=== PATIENT | female | born 1970 | race Two or more races ===

== ENCOUNTER 2017-12-03 07:47 | Outpatient (CLI) | payer OTHER | END 2017-12-03 08:19 | disposition home or self-care (01) | LOC: LAB 07:47 | DX: R00.2 Palpitations (principal); E03.8 Other specified hypothyroidism; E78.4 Other hyperlipidemia; M25.50 Pain in unspecified joint ==

== ENCOUNTER 2017-12-22 14:16 | Outpatient (CLI) | payer OTHER | END 2017-12-22 14:30 | disposition home or self-care (01) | LOC: MAMO-SONO 14:16 | DX: Z12.31 Encounter for screening mammogram for malignant neoplasm of breast (principal) ==

== ENCOUNTER 2018-07-29 07:59 | Outpatient (CLI) | payer OTHER | END 2018-07-29 12:51 | disposition home or self-care (01) | LOC: LAB 07:59 | DX: E03.8 Other specified hypothyroidism (principal); Z13.1 Encounter for screening for diabetes mellitus; Z12.11 Encounter for screening for malignant neoplasm of colon ==

== ENCOUNTER → 2019-03-13 09:00 | Outpatient (CLI) | payer OTHER | END | disposition home or self-care (01) | LOC: LAB 09:00 | DX: E03.8 Other specified hypothyroidism (principal); Z00.00 Encounter for general adult medical examination without abnormal findings; R42 Dizziness and giddiness; E78.49 Other hyperlipidemia; M26.629 Arthralgia of temporomandibular joint, unspecified side ==

== ENCOUNTER → 2019-03-15 10:39 | Outpatient (CLI) | payer OTHER | END | disposition home or self-care (01) | LOC: LAB 10:39 | DX: E03.8 Other specified hypothyroidism (principal); E78.49 Other hyperlipidemia; R42 Dizziness and giddiness; Z00.00 Encounter for general adult medical examination without abnormal findings; M26.629 Arthralgia of temporomandibular joint, unspecified side ==

== ENCOUNTER 2020-08-07 07:20 | Emergency (ER) | payer OTHER ==
[~2020-08-07] VITALS: Ht 147.3 cm; Wt 65.8 kg
[2020-08-07] MEDS ORDERED: SYNTHROID88 MCG (07:39)
== END 2020-08-07 21:20 | disposition home or self-care (01) ==
LOC: ER 07:20
DX: D27.1 Benign neoplasm of left ovary (principal); R10.32 Left lower quadrant pain

== ENCOUNTER 2020-09-08 05:55 | Day surgery (SDC) | payer OTHER ==
[~2020-09-08 05:55] MED LIST: SYNTHROID88 MCG
== END 2020-09-08 15:20 | disposition home or self-care (01) ==
LOC: CIR.AMB 05:55
PROVIDERS: ATTEND Obstetrics & Gynecology
DX: N84.0 Polyp of corpus uteri (principal); Z20.828 Contact with and (suspected) exposure to other viral communicable diseases

== ENCOUNTER 2021-08-17 08:05 | Outpatient (CLI) | payer OTHER | END 2021-08-17 08:11 | disposition home or self-care (01) | LOC: PPH VACUNA 08:05 | PROVIDERS: ATTEND Emergency Medicine Pediatric Emergency Medicine | DX: Z23 Encounter for immunization (principal) ==

== ENCOUNTER 2022-01-13 07:06 | Outpatient (CLI) | payer OTHER | END 2022-01-13 07:07 | disposition home or self-care (01) | LOC: LAB 07:06 | PROVIDERS: ATTEND Internal Medicine | DX: E03.8 Other specified hypothyroidism (principal); E55.9 Vitamin D deficiency, unspecified ==

== ENCOUNTER 2022-02-03 07:06 | Outpatient (CLI) | payer OTHER | END 2022-02-03 07:07 | disposition home or self-care (01) | LOC: LAB 07:06 | PROVIDERS: ATTEND General Practice | DX: E03.9 Hypothyroidism, unspecified (principal); E78.5 Hyperlipidemia, unspecified; E55.9 Vitamin D deficiency, unspecified; N39.0 Urinary tract infection, site not specified; R42 Dizziness and giddiness; R10.2 Pelvic and perineal pain; M19.90 Unspecified osteoarthritis, unspecified site; M25.50 Pain in unspecified joint ==

== ENCOUNTER 2022-02-15 09:41 | Outpatient (CLI) | payer OTHER | END 2022-02-15 09:46 | disposition home or self-care (01) | LOC: LAB 09:41 | PROVIDERS: ATTEND Emergency Medicine Pediatric Emergency Medicine | DX: Z20.828 Contact with and (suspected) exposure to other viral communicable diseases (principal) ==

== ENCOUNTER → 2022-06-16 | Outpatient (CLI) | payer OTHER | END | disposition home or self-care (01) | LOC: LAB 07:23 | PROVIDERS: ATTEND Internal Medicine | DX: E78.5 Hyperlipidemia, unspecified (principal); E11.65 Type 2 diabetes mellitus with hyperglycemia; E03.8 Other specified hypothyroidism; I10 Essential (primary) hypertension ==

== ENCOUNTER 2022-07-07 08:00 | Outpatient (CLI) | payer OTHER | END 2022-07-07 08:05 | disposition home or self-care (01) | LOC: PPH VACUNA 08:00 | PROVIDERS: ATTEND Emergency Medicine Pediatric Emergency Medicine | DX: Z23 Encounter for immunization (principal) ==

== ENCOUNTER → 2022-08-05 10:59 | Outpatient (CLI) | payer OTHER | END | disposition home or self-care (01) | LOC: LAB 10:59 | PROVIDERS: ATTEND General Practice | DX: M25.512 Pain in left shoulder (principal); M25.511 Pain in right shoulder ==

== ENCOUNTER → 2022-11-01 | Outpatient (CLI) | payer OTHER | END | disposition home or self-care (01) | LOC: LAB 06:59 | PROVIDERS: ATTEND Internal Medicine | DX: E55.9 Vitamin D deficiency, unspecified (principal); E03.8 Other specified hypothyroidism; I10 Essential (primary) hypertension; M81.0 Age-related osteoporosis without current pathological fracture; M06.09 Rheumatoid arthritis without rheumatoid factor, multiple sites; M46.1 Sacroiliitis, not elsewhere classified; E78.5 Hyperlipidemia, unspecified ==

== ENCOUNTER 2022-11-24 13:17 | Outpatient (CLI) | payer OTHER | END 2022-11-24 13:18 | disposition home or self-care (01) | LOC: LAB 13:17 | PROVIDERS: ATTEND General Practice | DX: R05.9 Cough, unspecified (principal); R06.02 Shortness of breath; R50.9 Fever, unspecified; Z20.822 Contact with and (suspected) exposure to COVID-19 ==

== ENCOUNTER 2023-01-25 07:58 | Outpatient (CLI) | payer OTHER | END 2023-01-25 09:08 | disposition home or self-care (01) | LOC: LAB 07:58 | PROVIDERS: ATTEND Internal Medicine | DX: E11.65 Type 2 diabetes mellitus with hyperglycemia (principal); E78.5 Hyperlipidemia, unspecified; E03.8 Other specified hypothyroidism; I10 Essential (primary) hypertension ==

== ENCOUNTER → 2023-02-08 | Outpatient (CLI) | payer OTHER | END | disposition home or self-care (01) | LOC: MRI 07:06 | PROVIDERS: ATTEND Internal Medicine Rheumatology | DX: M46.1 Sacroiliitis, not elsewhere classified (principal); M54.59 Other low back pain | CPT/HCPCS: 72196 ==

== ENCOUNTER 2023-02-24 12:57 | Outpatient (CLI) | payer OTHER | END 2023-02-24 13:07 | disposition home or self-care (01) | LOC: MAMO-SONO 12:57 | PROVIDERS: ATTEND General Practice | DX: N64.4 Mastodynia (principal) ==

== ENCOUNTER 2023-03-26 10:13 | Outpatient (CLI) | payer OTHER | END 2023-03-26 10:30 | disposition home or self-care (01) | LOC: RAD 10:13 | PROVIDERS: ATTEND Internal Medicine | DX: M54.40 Lumbago with sciatica, unspecified side (principal) ==

== ENCOUNTER 2023-06-23 | Outpatient (CLI) | payer OTHER | END 2023-06-23 00:15 | disposition home or self-care (01) | LOC: PPH VACUNA | PROVIDERS: ATTEND Emergency Medicine Pediatric Emergency Medicine | DX: Z23 Encounter for immunization (principal) | CPT/HCPCS: 90686; G0008 ==

== ENCOUNTER 2023-08-11 13:03 | Outpatient (CLI) | payer OTHER ==
[2023-08-11 08:25] LABS: HEMATOCRIT 34.6 % (36.0-45.00); HEMOGLOBIN 12.1 g/dL (12.0-15.00); MEAN CORPUSCULAR HEMOGLOBIN 31.2 pg (27.00-32.0); MEAN CORPUSCULAR HGB CONC 35.1 g/dl (32.0-36.0); PLATELET COUNT 285 K/uL (150-450); RED BLOOD COUNT 3.88 M/uL (4.00-6.00); RED CELL DISTRIBUTION WIDTH 13.2 % (11.5-14.5)
[2023-08-11 08:28] LABS: PH,URINE 5.5 (5.0-8.0); URINE APPEARANCE Clear; URINE BILIRRUBIN Negative (NEGATIVE); URINE BLOOD Negative; URINE COLOR Yellow; URINE GLUCOSE Negative (NEGATIVE); URINE LEUKOCYTE Negative; URINE NITRATE Negative; URINE PROTEIN Negative (NEGATIVE); URINE UROBILINOGEN 0.2 E.U./dl
[2023-08-11 08:29] LABS: URINE BACTERIA 20.1 uL (0.0-1933); URINE EPITHELIAL CELLS 1.9 uL (0.0-38.8); URINE RBC 2.4 uL (0.0-20.8)
[2023-08-11 08:37] LABS: ALBUMIN 3.5 gm/dL (3.4-5.0); BILIRUBIN TOTAL 0.37 mg/dL (0.3-1.2); BILIRUBIN,CONJUGATED 0.11 mg/dL (0.0-0.2); BILIRUBIN,UNCONJUGATED 0.26 mg/dL (0.0-0.6); CALCIUM 8.3 mg/dL (8.5-10.1); CHOL HDL RATIO 4.1 (0-5.0); CREATININE SERUM 0.7 mg/dL (0.55-1.02); GFR 87.53; GLOBULINA 3.4 G/DL (2.4-3.5); POTASSIUM 4.05 mEq/L (3.5-5.1); T4 TOTAL 9.04 UG/DL (4.8-13.9); TOTAL PROTEIN 6.9 gm/dL (6.4-8.2); TSH 0.759 uIU/mL (0.358-3.74)
[2023-08-11 09:10] LABS: URINE WBC 0.7 uL (0.0-23.2)
[2023-08-11 09:28] LABS: T3 TOTAL 0.672 ng/ml (0.846-2.02); VITAMIN D3 25 HYDROXY 46.97 ng/ml (30-120)
== END 2023-08-11 13:04 | disposition home or self-care (01) ==
LOC: LAB 13:03
PROVIDERS: ATTEND General Practice
DX: E78.5 Hyperlipidemia, unspecified (principal); E55.9 Vitamin D deficiency, unspecified; N39.0 Urinary tract infection, site not specified; R42 Dizziness and giddiness; R10.9 Unspecified abdominal pain; N95.1 Menopausal and female climacteric states; Z91.040 Latex allergy status

== ENCOUNTER 2023-11-04 06:48 | Outpatient (CLI) | payer OTHER ==
[2023-11-04 07:49] LABS: ALBUMIN 3.8 gm/dL (3.4-5.0); BILIRUBIN TOTAL 0.4 mg/dL (0.3-1.2); CALCIUM 8.8 mg/dL (8.5-10.1); CREATININE SERUM 0.69 mg/dL (0.55-1.02); GLOBULINA 3.7 G/DL (2.4-3.5); POTASSIUM 4.13 mEq/L (3.5-5.1); TOTAL PROTEIN 7.5 gm/dL (6.4-8.2)
== END 2023-11-04 06:50 | disposition home or self-care (01) ==
LOC: LAB 06:48
DX: L50.0 Allergic urticaria (principal); Z91.040 Latex allergy status

== ENCOUNTER 2023-12-17 08:38 | Outpatient (CLI) | payer OTHER ==
[2023-12-17 09:18] LABS: HEMATOCRIT 36.5 % (36.0-45.00); HEMOGLOBIN 12.7 g/dL (12.0-15.00); MEAN CELL VOLUME 91.3 fL (80.00-100.00); MEAN CORPUSCULAR HEMOGLOBIN 31.6 pg (27.00-32.0); MEAN CORPUSCULAR HGB CONC 34.7 g/dl (32.0-36.0); PLATELET COUNT 334 K/uL (150-450)
[2023-12-17 09:25] LABS: ERYTHROCYTE SEDIMENTATION RATE 33 mm/hr
[2023-12-17 09:51] LABS: ALBUMIN 3.9 gm/dL (3.4-5.0); BILIRUBIN TOTAL 0.36 mg/dL (0.3-1.2); CALCIUM 9.3 mg/dL (8.5-10.1); CHOL HDL RATIO 4.5 (0-5.0); CREATININE SERUM 0.69 mg/dL (0.55-1.02); GLOBULINA 3.5 G/DL (2.4-3.5); POTASSIUM 4.16 mEq/L (3.5-5.1); TOTAL PROTEIN 7.4 gm/dL (6.4-8.2); TSH 1.18 uIU/mL (0.358-3.74)
[2023-12-17 11:49] LABS: URINE APPEARANCE Clear; URINE BILIRRUBIN Negative (NEGATIVE); URINE BLOOD Negative; URINE COLOR Yellow; URINE GLUCOSE Negative (NEGATIVE); URINE LEUKOCYTE Small; URINE NITRATE Negative; URINE PROTEIN Negative (NEGATIVE); URINE UROBILINOGEN 0.2 E.U./dl
[2023-12-17 11:51] LABS: URINE BACTERIA 648.8 uL (0.0-1933); URINE EPITHELIAL CELLS 14.3 uL (0.0-38.8); URINE RBC 4.5 uL (0.0-20.8); URINE WBC 13.7 uL (0.0-23.2)
== END 2023-12-17 08:42 | disposition home or self-care (01) ==
LOC: RAD 08:38 → LAB 08:38
PROVIDERS: ATTEND General Practice
DX: E78.5 Hyperlipidemia, unspecified (principal); R73.09 Other abnormal glucose; E03.8 Other specified hypothyroidism; E03.9 Hypothyroidism, unspecified; E11.9 Type 2 diabetes mellitus without complications; E55.9 Vitamin D deficiency, unspecified; Z00.00 Encounter for general adult medical examination without abnormal findings; M62.838 Other muscle spasm; M54.6 Pain in thoracic spine; M62.830 Muscle spasm of back

== ENCOUNTER 2024-06-20 12:47 | Outpatient (CLI) | payer OTHER | END 2024-06-20 13:46 | disposition home or self-care (01) | LOC: LAB 12:47 | DX: Z20.2 Contact with and (suspected) exposure to infections with a predominantly sexual mode of transmission (principal); Z11.3 Encounter for screening for infections with a predominantly sexual mode of transmission ==

== ENCOUNTER 2024-07-06 06:04 | Outpatient (CLI) | payer OTHER ==
[2024-07-06 08:30] LABS: HEMATOCRIT 36.5 % (36.0-45.00); HEMOGLOBIN 12.7 g/dL (12.0-15.00); MEAN CELL VOLUME 93.6 fL (80.00-100.00); MEAN CORPUSCULAR HEMOGLOBIN 32.5 pg (27.00-32.0); MEAN CORPUSCULAR HGB CONC 34.8 g/dl (32.0-36.0); PLATELET COUNT 349 K/uL (150-450); RED CELL DISTRIBUTION WIDTH 12.7 % (11.5-14.5)
[2024-07-06 08:37] LABS: PH,URINE 5.5 (5.0-8.0); URINE APPEARANCE Clear; URINE BILIRRUBIN Negative (NEGATIVE); URINE BLOOD Negative; URINE COLOR Yellow; URINE GLUCOSE Negative (NEGATIVE); URINE KETONE Negative (NEGATIVE); URINE LEUKOCYTE Negative; URINE NITRATE Negative; URINE PROTEIN Negative (NEGATIVE); URINE UROBILINOGEN 0.2 E.U./dl
[2024-07-06 08:38] LABS: URINE RBC 8.5 uL (0.0-20.8)
[2024-07-06 09:23] LABS: INR 0.99; PARTIAL THROMBOPLASTIN TIME 28.5 SECONDS (22.0-34.0); PROTHROMBIN TIME 10.8 SECONDS (9.0-11.5)
[2024-07-06 09:33] LABS: ALBUMIN 3.8 gm/dL (3.4-5.0); BILIRUBIN TOTAL 0.27 mg/dL (0.3-1.2); CALCIUM 8.6 mg/dL (8.5-10.1); CHOL HDL RATIO 4.5 (0-5.0); CREATININE SERUM 0.74 mg/dL (0.55-1.02); GFR 81.78; POTASSIUM 4.27 mEq/L (3.5-5.1); TOTAL PROTEIN 7.8 gm/dL (6.4-8.2); TSH 0.642 uIU/mL (0.358-3.74)
[2024-07-06 09:57] LABS: URINE EPITHELIAL CELLS 0.7 uL (0.0-38.8); URINE WBC 1.5 uL (0.0-23.2)
[2024-07-09 14:14] LABS: ob NEGATIVE (NEGATIVE)
== END 2024-07-06 06:12 | disposition home or self-care (01) ==
LOC: LAB 06:04
PROVIDERS: ATTEND Obstetrics & Gynecology
DX: E03.9 Hypothyroidism, unspecified (principal); E78.00 Pure hypercholesterolemia, unspecified; N39.0 Urinary tract infection, site not specified; I10 Essential (primary) hypertension; Z00.00 Encounter for general adult medical examination without abnormal findings; Z11.4 Encounter for screening for human immunodeficiency virus [HIV]; Z12.11 Encounter for screening for malignant neoplasm of colon; E55.9 Vitamin D deficiency, unspecified; Z21 Asymptomatic human immunodeficiency virus [HIV] infection status; R79.9 Abnormal finding of blood chemistry, unspecified; R79.89 Other specified abnormal findings of blood chemistry

== ENCOUNTER 2024-07-09 09:36 | Outpatient (CLI) | payer OTHER ==
[2024-07-10 13:11] LABS: PROLACTIN 9.4 ng/mL (3.6-25.2)
== END 2024-07-09 10:40 | disposition home or self-care (01) ==
LOC: LAB 09:36
PROVIDERS: ATTEND Specialist
DX: N91.1 Secondary amenorrhea (principal)

== ENCOUNTER 2024-09-07 08:30 | Outpatient (CLI) | payer OTHER ==
[~2024-09-07 08:30] MED LIST changes: +PEPCID AC20 MG PO; +SYNTHROID75 MCG PO
== END 2024-09-07 09:00 | disposition home or self-care (01) ==
LOC: PPH VACUNA 08:30
PROVIDERS: ATTEND Emergency Medicine Pediatric Emergency Medicine
DX: Z23 Encounter for immunization (principal)

== ENCOUNTER 2024-10-10 11:31 | Outpatient (CLI) | payer OTHER | END 2024-10-10 11:32 | disposition home or self-care (01) | LOC: NUCLEAR 11:31 | PROVIDERS: ATTEND Obstetrics & Gynecology | DX: Z13.820 Encounter for screening for osteoporosis (principal); M81.0 Age-related osteoporosis without current pathological fracture ==

== ENCOUNTER 2024-11-17 12:10 | Outpatient (CLI) | payer OTHER ==
[2024-11-17 12:52] LABS: CHOL HDL RATIO 5.2 (0-5.0); TSH 0.413 uIU/mL (0.358-3.74)
[2024-11-17 12:53] LABS: T4 FREE 1.02 NG/ML (0.76-1.46)
== END 2024-11-17 12:46 | disposition home or self-care (01) ==
LOC: LAB 12:10
PROVIDERS: ATTEND Internal Medicine
DX: E55.9 Vitamin D deficiency, unspecified (principal); E78.2 Mixed hyperlipidemia; R73.03 Prediabetes; K29.00 Acute gastritis without bleeding